=== PATIENT | female | born 1950 | race Two or more races ===

== ENCOUNTER 2018-06-26 09:25 | Outpatient (CLI) | payer OTHER | END 2018-06-26 09:32 | disposition home or self-care (01) | LOC: RX STUDY 09:25 | DX: R10.84 Generalized abdominal pain (principal) ==

== ENCOUNTER 2023-12-19 13:21 | Outpatient (CLI) | payer OTHER | END 2023-12-19 13:24 | disposition home or self-care (01) | LOC: NUCLEAR 13:21 | PROVIDERS: ATTEND Internal Medicine | DX: Z13.820 Encounter for screening for osteoporosis (principal); M81.0 Age-related osteoporosis without current pathological fracture ==